=== PATIENT | male | born 1945 | race Hispanic/Latino ===

== ENCOUNTER 2016-08-07 07:29 | Day surgery (SDC) | payer MEDICARE, OTHER ==
[~2016-08-07] VITALS: Ht 185.4 cm; Wt 68.2 kg
[~2016-08-07 07:29] MED LIST: COMBIVENT RESPIM4 GM INH; DILTIAZEM ER180 MG PO; KLOR-CON M2020 MEQ PO; NICOTINE LOZENGE4 MG BUCCAL; NICOTINE PATCH1 EAC1 TD; TESSALON PERLE100 MG PO; TOPROL XL50 MG PO; TORSEMIDE5 MG PO; WARFARIN SODIUM5 MG PO
--- NOTE | 2016-08-07 10:13 | NUR ---
08/07/16 Will[facility]3 Chary Kenney 1007-PATIENT ARRIVED TO PACU ON 3L NC O2 SAT 99% PATIENT NONAROUSABLE. ABDOMEN SOFT. PATIENT LYING ON LEFT SIDE. CURRENT AFIB, HX OF AFIB
--- NOTE | 2016-08-07 12:40 | NUR ---
PT AWAKE AND TALKING W/RN. SPOUSE @ BS. COFFEE GIVEN. PLAN OF CARE DISCUSSED AND PT AND FAMILY VERBALIZE UNDERSTANDING.
--- NOTE | 2016-08-07 13:15 | NUR ---
LE 1250: PT UP TO BS AND AMBULATES AROUND ROOM WELL. PT DENIES DIZZINESS. COFFEE DRANK AND PT INSISTS ON GOING HOME. DC INSTRUCTIONS GIVEN IN PRESENCE OF SPOUSE AND BOTH PT AND SPOUSE VERBALIZE UNDERSTANDING.
== END 2016-08-07 12:58 | disposition home or self-care (01) ==
LOC: OPS 07:29 → EDBD 07:29 → DS 07:29 → OPS 09:00
PROVIDERS: Colon & Rectal Surgery
PROC: 0DJD8ZZ Inspection of Lower Intestinal Tract, Via Natural or Artificial Opening Endoscopic (ICD-10-PCS; principal; 2016-08-07 08:30)
DX: K64.8 Other hemorrhoids (principal); K57.30 Diverticulosis of large intestine without perforation or abscess without bleeding; I11.0 Hypertensive heart disease with heart failure; I50.9 Heart failure, unspecified; I48.91 Unspecified atrial fibrillation; F17.210 Nicotine dependence, cigarettes, uncomplicated; Z86.010 Personal history of colon polyps; Z90.49 Acquired absence of other specified parts of digestive tract; Z98.890 Other specified postprocedural states
CPT/HCPCS: 99152; 99153; J2250; J3010; J7120

== ENCOUNTER 2022-08-27 06:45 | Day surgery (SDC) | payer MEDICARE, OTHER ==
[2022-08-20 13:22] VITALS: BP 113/68
[~2022-08-27] VITALS: Ht 182.9 cm; Wt 72.7 kg
[~2022-08-27 06:45] MED LIST changes: +ATORVASTATIN CA10 MG PO; +DILT-XR240 MG PO; +DOXYCYCLINE HY100 MG PO; +FISH OIL 1,0001 EAC2 NG; +HYDROCODON-ACE1 EA11 PO; +LIPITOR10 MG PO; +LISINOPRIL2.5 MG PO; +METOPROLOL SUCC50 MG PO; +SILDENAFIL20 MG PO
[2022-08-27 07:05] VITALS: BP 143/85
--- NOTE | 2022-08-27 08:56 | NUR ---
08/27/22 0856 Sunita Burch TO PACU, AFIB NOTED AND CHRONIC. ORAL AIRWAY IN PLACE.
[2022-08-27 09:24] VITALS: BP 117/85
--- NOTE | 2022-08-27 12:03 | OR ---
[facility] [address] [place], [place] [address] Signed DATE OF OPERATION: 08/27/2022 SURGEON: Alok Akers MD PREOPERATIVE DIAGNOSES: 1. Stage II cecal cancer 2009. 2. Right colectomy with stapled kywl-qu-xmdx anastomosis 2009. 3. Personal history of hyperplastic and adenomatous polyps beginning 2009. 4. Anal skin tags. 5. Minimal diverticulosis. 6. Redundant left colon. POSTOPERATIVE DIAGNOSES: 1. Ileocolonic anastomosis at 65 cm. 2. 4 mm polyp at 7 cm. 3. 3 mm polyp at 10 cm. 4. Minimal sigmoid diverticulosis. 5. Moderate internal hemorrhoids with associated skin tags. PROCEDURE: Colonoscopy with hot biopsy. ESTIMATED BLOOD LOSS: None. INDICATIONS: Samantha is a 76-year-old gentleman, who I helped with a colonoscopy back in 2009. He was found to have hyperplastic and adenomatous polyps. He also had a stage II cecal cancer requiring a right colectomy with a gbtg-hb-zksj anastomosis. We know he has minimal sigmoid diverticulosis. He has anal skin tags as well as some redundant left colon. We had a terrible time on his last colonoscopy using large amounts of Versed and fentanyl. We never made it to the anastomosis. He declined a barium enema. He returns now for his followup colonoscopy. I gave him a pamphlet on colonoscopy. He understands the test quite well. There is risk including, but not limited to gas bloating, crampy abdominal pain, bleeding, perforation requiring surgery, and missed diagnosis. We also reviewed the written instructions for the bowel prep line by line. We asked for monitored anesthesia care on this occasion given the difficulty we had previously along with his advancing age. Samantha maintains himself a DNR/DNI. He wanted to suspend that just for the procedure. He told me after his passes away, he will never go back to see another doctor. It sounds like he has decided this will be his last colonoscopy as Electronically Signed By: ALOK AKERS MD 08/27/22 1203 PATIENT NAME: SAMANTHA READ OPERATIVE REPORT DATE OF : 41 REPORT #: [id number] PHYSICIAN: ALOK AKERS MD PCP: MORAIMA NUNES MD REPORT IS CONFIDENTIAL AND NOT TO BE RELEASED WITHOUT AUTHORIZATION [facility] [address] [place], [place] [address] Signed well. He had expressed understanding wishes to proceed. PROCEDURE NOTE: Samantha was taken into our endoscopy suite and placed in the left lateral decubitus position. He was given monitored anesthesia care and propofol infusion per our nurse oracle e[employer] architect. A digital rectal exam was performed and very little in the way of external hemorrhoids. He had good sphincter tone. He had some moderate induration and swelling to the prostate gland. There were no masses. The adult colonoscope was introduced and advanced under direct visualization of the camera. Indeed he has a long redundant and somewhat angulated left colon. It took some time along with some abdominal compression to get up through that area with additional propofol infusion. We eventually made it through the anastomosis at 65 cm and went up to the small bowel about 20 cm. We finally came back and looked around the anastomosis very carefully. It is well healed without any evidence of any recurrent cancer. There was no granulation tissue, no ulcerations. Indeed we found some diverticula in the sigmoid colon. They were quite small. They were small in size, few in number and scattered about. We found the two polyps in the rectum, they were easily removed with the help of hot biopsy forceps. Upon retroflexion of the scope, it looks like he has moderate internal hemorrhoid columns with some skin tags. After this, the gas was suctioned out and the colonoscope removed. Samantha tolerated the procedure quite well. RECOMMENDATIONS: I will see Samantha back in my office in 7 to 14 days to review his biopsy results. Most likely he will stay on the five year plan until he is within 8 to 12 years of the end of his life. Alok Akers MD [facility] /[id number] cc: MD Dr. Moraima Garza Electronically Signed By: ALOK AKERS MD 08/27/22 1203 PATIENT NAME: SAMANTHA READ OPERATIVE REPORT DATE OF : 41 REPORT #: [id number] PHYSICIAN: ALOK AKERS MD PCP: MORAIMA NUNES MD REPORT IS CONFIDENTIAL AND NOT TO BE RELEASED WITHOUT AUTHORIZATION [address] [address] Signed Copies: ALOK AKERS MD ~ Electronically Signed By: ALOK AKERS MD 08/27/22 1203 PATIENT NAME: ROROSAMANTHA BLANCO OPERATIVE REPORT DATE OF : 41 REPORT #: [id number] PHYSICIAN: ALOK AKERS MD PCP: MORAIMA NUNES MD REPORT IS CONFIDENTIAL AND NOT TO BE RELEASED WITHOUT AUTHORIZATION
--- NOTE | 2022-08-27 13:27 | NUR ---
PT IN BED. OVERALL IN GOOD SPIRITS. CONSTENTED TO PRAYER. PRAYED.
--- NOTE | 2022-08-28 15:29 | PATH ---
[facility] [address] [facility] [place], [place] [address] Signed SPECIMEN(S): A RECTAL POLYP AT 7 CM SPECIMEN(S): B RECTAL POLYP AT 10 CM SPECIMEN SOURCE: A. RECTAL POLYP AT 7 CM B. RECTAL POLYP AT 10 CM CLINICAL HISTORY: Hx Colon Ca; Hx polyps - Hx diverticulosis ; colon polyps; diverticulosis; internal hemorrhoids. FINAL PATHOLOGIC DIAGNOSIS: A. Rectal polyp at 7 cm: - Hyperplastic polyp (one fragment). B. Rectal polyp at 10 cm: - Hyperplastic polyps (two fragments). J[facility]:C2NR MICROSCOPIC EXAMINATION: Histologic sections of all submitted blocks are examined by light microscopy. These findings, together with the gross examination, support the pathologic diagnosis. GROSS DESCRIPTION: A. The specimen, labeled and designated "Jaime, rectal polyp at 7 cm," is received in formalin and consists of one bustillos soft tissue fragment, 0.1 cm. Entirely submitted in (A1). B. The specimen, labeled and designated "Jaime, rectal polyp at 10 cm," is received in formalin and consists of two bustillos soft tissue fragments, ranging from 0.1-0.2 cm. Entirely submitted in (B1). JS (under the direct supervision of a pathologist) The Gross Description was prepared using a voice recognition system. The report was reviewed for accuracy; however, sound-alike word errors, addition and/or deletions may occur. If there is any question about this report, please contact Client Services. PERFORMING LABORATORY: Technical component was performed by [facility], [address] [place] [id number] (CLIA# [id number]). Professional interpretation was performed by [facility], [address] [place] [id number] (CLIA#: [id number]). PATIENT NAME: SAMANTHA READ PATHOLOGY DATE OF : 41 REPORT #: [id number] PHYSICIAN: [facility] PATHOLOG[facility] PCP: CHRISTY NUNES MD REPORT IS CONFIDENTIAL AND NOT TO BE RELEASED WITHOUT AUTHORIZATION [address] [place] [address] Signed Diagnostician: Jeovany Montalvo MD Pathologist Electronically Signed 08/28/2022 Copies: ~ PATIENT NAME: SAMANTHA READ PATHOLOGY DATE OF : 41 REPORT #: [id number] PHYSICIAN: [facility] PATHOLOG[facility] PCP: CHRISTY NUNES MD REPORT IS CONFIDENTIAL AND NOT TO BE RELEASED WITHOUT AUTHORIZATION
== END 2022-08-27 09:27 | disposition home or self-care (01) ==
LOC: DS 06:45 → OPS 06:45 → DS 07:30 → OPS 08:15
PROVIDERS: ATTEND Colon & Rectal Surgery
PROC: 0DBP8ZX Excision of Rectum, Via Natural or Artificial Opening Endoscopic, Diagnostic (ICD-10-PCS; principal; 2022-08-27 08:15)
DX: Z12.11 Encounter for screening for malignant neoplasm of colon (principal); K57.30 Diverticulosis of large intestine without perforation or abscess without bleeding; K62.1 Rectal polyp; K64.4 Residual hemorrhoidal skin tags; K64.8 Other hemorrhoids; Z98.0 Intestinal bypass and anastomosis status; I11.0 Hypertensive heart disease with heart failure; I50.9 Heart failure, unspecified; I48.20 Chronic atrial fibrillation, unspecified; E78.2 Mixed hyperlipidemia; F17.200 Nicotine dependence, unspecified, uncomplicated; Z85.038 Personal history of other malignant neoplasm of large intestine; Z86.010 Personal history of colon polyps; Z79.01 Long term (current) use of anticoagulants; Z88.0 Allergy status to penicillin; Z79.899 Other long term (current) drug therapy
CPT/HCPCS: 36415; 85610; J2370; J2704; J7121